=== PATIENT | male | born 1965 | race African-American/Black ===

== ENCOUNTER 2016-12-14 06:19 | Emergency (ER) | payer BC ==
[~2016-12-14] VITALS: Ht 170.2 cm; Wt 93.0 kg
[~2016-12-14 06:19] MED LIST: IBUPROFEN600 MG ORAL; NORCO 5-325 TA1 EACH ORAL; POLYTRIM OP SOL10 ML RIGHT EYE; PREDNISONE10 MG ORAL; ROBAXIN-750750 MG PO; TRAMADOL HCL50 MG ORAL; VALIUM2 MG ORAL
[2016-12-14] MEDS ORDERED: PREDNISONE5 MG ORAL (06:34)
[2016-12-14 06:35] VITALS: BP 134/60
[2016-12-14] MEDS ORDERED: Morphine Sulfate 4mg/ml Inj IVP ONE (07:00)
[2016-12-14] MEDS ORDERED: DiphenhydrAMINE 50mg/ml Inj IVP ONE (07:00)
[2016-12-14] MEDS ORDERED: Metoclopramide 10mg/2ml Inj IVP ONE (07:00)
[2016-12-14 07:27] LABS: APPEARANCE,URINE CLEAR; KETONES,URINE NEGATIVE (NEGATIVE); LEUKOCYTE ESTERASE ,URINE 1+ (NEGATIVE); NITRITE,URINE NEGATIVE (NEGATIVE); PH,URINE 8 (4.5-8.0); PROTEIN,URINE 1+ (NEGATIVE); UROBILINOGEN,URINE NORMAL MG/DL (0.0-1.0)
[2016-12-14] MEDS ORDERED: HYDROmorphone 1mg/ml Carpuject IVP ONE (07:30)
[2016-12-14] MEDS ORDERED: Famotidine 20 MG/ 2ML VIAL IVP ONE (07:30)
[2016-12-14 07:39] VITALS: BP 128/76
[2016-12-14 07:50] LABS: BACTERIA,URINE FEW /HPF; SQUAMOUS EPITHELIAL CELL,UR OCCASIONAL /LPF (NONE/OCC)
--- NOTE | 2016-12-14 08:02 | Emergency Room Report ---
History of Present Illness General Chief Complaint: Abdominal Pain Source: Patient Present Illness HPI Patient presents with complaints of nausea vomiting epigastric pain Patient has recently undergone a TURP procedure as well Denies any chest pain or shortness of breath denies any back or flank pain Patient reports that he has been dealing with the epigastric discomfort for 2 months however now the pain has worsened including increased vomiting Denies any diarrhea denies any fevers or chills Pain was 6/10 denies any rash Denies any other fall or trauma Allergies: Coded Allergies: No Known Allergies (Unverified , 12/14/16) Patient History Past Medical History: see triage record Pertinent Family History: none Reviewed Nursing Documentation: PMH: Agreed, PSxH: Agreed Nursing Documentation-PMH Hx Neurological Problems: Yes - polymyelocytis Review of Systems All Other Systems: negative except mentioned in HPI Physical Exam Vital Signs Date Time Temp Pulse Resp B/P Pulse Ox O2 Delivery O2 Flow Rate FiO2 12/14/16 06:23 97.9 64 16 123/89 100 Room Air Sp02 EP Interpretation: reviewed, normal General Appearance: moderate distress - Appears acutely nauseated actively vomiting in the ER, Head: normocephalic, atraumatic Eyes: bilateral eye EOMI, bilateral eye PERRL ENT: hearing grossly normal, normal pharynx, TMs + canals normal, uvula midline Neck: full range of motion, supple, no meningismus, no bony tend Respiratory: lungs clear, normal breath sounds, no rhonchi, no respiratory distress, no retraction, no accessory muscle use Cardiovascular #1: normal peripheral pulses, regular rate, rhythm, no edema, no gallop, no JVD, no murmur Gastrointestinal: normal bowel sounds, soft, no mass, no organomegaly, non- distended, no guarding, no hernia, no pulsatile mass, no rebound, tenderness - Mainly in the epigastric area Genitourinary: no CVA tenderness Musculoskeletal: normal inspection Neurologic: oriented x3, responsive, dietetic intern III-XII nml as tested, motor strength/ tone normal, sensory intact Psychiatric: mood/affect normal Skin: normal color, no rash, warm/dry, palpation normal Lymphatic: normal inspection, no adenopathy Medical Decision Making Diagnostic Impression: Primary Impression: Abdominal pain ER Course With the history exam and presentation, multiple differentials considered, including but not limited to appendicitis, gastritis, cholecystitis, diverticulitis Patient had CT obtained of the abdomen pelvis required multiple rounds of antibiotics and hydration Has started to do better throughout the ER stay CT shows some inflammatory process in line with enteritis possibly Patient's blood work shows a mildly elevated lipase level after prolonged observation in the ER patient has done well Will have clear diet And is stable for close outpatient followup Labs Test 12/14/16 06:54 12/14/16 08:05 Urine Color Yellow Urine Appearance Clear Urine pH 8 (4.5-8.0) Urine Specific [place] 1.010 (1.005-1.035) Urine Protein 1+ (NEGATIVE) Urine Glucose (UA) Negative (NEGATIVE) Urine Ketones Negative (NEGATIVE) Urine Occult Blood 2+ (NEGATIVE) Urine Nitrite Negative (NEGATIVE) Urine Bilirubin Negative (NEGATIVE) Urine Urobilinogen Normal MG/DL (0.0-1.0) Urine Leukocyte Esterase 1+ (NEGATIVE) Urine RBC 2-4 /HPF (0 - 0) Urine WBC 5-10 /HPF (0 - 0) Urine Squamous Epithelial Cells Occasional /LPF Urine Bacteria Few /HPF (NONE) White Blood Count 5.2 K/UL (4.8-10.8) Red Blood Count 4.53 M/UL (4.70-6.10) Hemoglobin 14.1 G/DL (14.2-18.0) Hematocrit 42.6 % (42.0-52.0) Mean Corpuscular Volume 94 FL (80-99) Mean Corpuscular Hemoglobin 31.2 PG (27.0-31.0) Mean Corpuscular Hemoglobin Concent 33.2 G/DL (32.0-36.0) Red Cell Distribution Width 13.0 % (11.6-14.8) Platelet Count 230 K/UL (150-450) Mean Platelet Volume 7.2 FL (6.5-10.1) Neutrophils (%) (Auto) 75.4 % (45.0-75.0) Lymphocytes (%) (Auto) 17.9 % (20.0-45.0) Monocytes (%) (Auto) 4.8 % (1.0-10.0) Eosinophils (%) (Auto) 1.1 % (0.0-3.0) Basophils (%) (Auto) 0.9 % (0.0-2.0) Sodium Level 137 mEQ/L (135-145) Potassium Level 3.6 mEQ/L (3.4-4.9) Chloride Level 98 mEQ/L (98-107) Carbon Dioxide Level 21 mEQ/L (20-30) Anion Gap 18 (5-15) Blood Urea Nitrogen 9 mg/dL (7-23) Creatinine 1.0 mg/dL (0.7-1.2) Estimat Glomerular Filtration Rate > 60 mL/min (>60) Glucose Level 104 mg/dL (74-106) Calcium Level 9.5 mg/dL (8.6-10.2) Total Bilirubin 0.3 mg/dL (0.0-1.2) Aspartate Amino Transf (AST/SGOT) 26 U/L (5-40) Alanine Aminotransferase (ALT/SGPT) 14 U/L (3-41) Alkaline Phosphatase 56 U/L (40-129) Troponin I < 0.30 ng/mL (<=0.30) Total Protein 7.0 g/dL (6.6-8.7) Albumin 4.1 g/dL (3.5-5.2) Globulin 2.9 g/dL Albumin/Globulin Ratio 1.4 (1.0-2.7) Lipase 108 U/L (< 60) CT/MRI/US Diagnostic Results CT/MRI/US Diagnostic Results : Impression CT abdomen pelvisImpression: Suspected gastroenteritis with mild distention of fluid-filled small bowel and liquefied stool in the colon. Normal appendix Last Vital Signs Date Time Temp Pulse Resp B/P Pulse Ox O2 Delivery O2 Flow Rate FiO2 12/14/16 07:39 98.0 64 14 128/76 100 Room Air Status: improved Disposition: HOME, SELF-CARE Condition: Improved Scripts Ondansetron Odt* (ZOFRAN ODT*) 4 Mg Tab.rapdis 4 MG ORAL Q6H Y for Nausea & Vomiting, #15 TAB 0 Refills Prov: ANH CABRERA.OClaudio 12/14/16 Famotidine (PEPCID) 20 Mg Tablet 20 MG ORAL DAILY, #7 TAB 0 Refills Prov: ANH CABRERA.OClaudio 12/14/16 Referrals: NON PHYSICIAN (PCP) Additional Instructions: Patient is provided with the discharge instructions notified to follow up with primary doctor in the next 2-3 days otherwise return to the er with any worsening symptoms. ANH CABRERA D.O. Dec 14, 2016 08:02
[2016-12-14 08:17] LABS: BASOPHILS % (AUTO) 0.9 % (0.0-2.0); EOSINOPHILS % (AUTO) 1.1 % (0.0-3.0); LYMPHOCYTES % (AUTO) 17.9 % (20.0-45.0); MEAN CORPUSCULAR HEMOGLOBIN 31.2 PG (27.0-31.0); MEAN CORPUSCULAR HGB CONC 33.2 G/DL (32.0-36.0); MEAN CORPUSCULAR VOLUME 94 FL (80-99); MEAN PLATELET VOLUME 7.2 FL (6.5-10.1); MONOCYTES % (AUTO) 4.8 % (1.0-10.0); NEUTROPHILS % (AUTO) 75.4 % (45.0-75.0); PLATELET COUNT 230 K/UL (150-450); RED BLOOD COUNT 4.53 M/UL (4.70-6.10); WHITE BLOOD COUNT 5.2 K/UL (4.8-10.8)
[2016-12-14 08:35] LABS: ALANINE AMINOTRANSFERASE 14 U/L (3-41); ALBUMIN/GLOBULIN RATIO 1.4 (1.0-2.7); ANION GAP 18 (5-15); ASPARTATE AMINO TRANSFERASE 26 U/L (5-40); CALCIUM 9.5 mg/dL (8.6-10.2); CARBON DIOXIDE 21 mEQ/L (20-30); CHLORIDE 98 mEQ/L (98-107); GLOMERULAR FILTRATION RATE > 60 mL/min (>60); HEMOLYSIS 9; LIPASE 108 U/L (< 60); POTASSIUM 3.6 mEQ/L (3.4-4.9); SODIUM 137 mEQ/L (135-145); TROPONIN I < 0.30 ng/mL (<=0.30)
[2016-12-14] MEDS ORDERED: cefTRIAXone 1 GM in NS 55 ML IVPB ONE (09:00)
--- NOTE | 2016-12-14 09:44 | Diagnostic Imaging Report ---
Indication: Abdominal pain Technique: Continuous helical transaxial imaging of the abdomen and pelvis was obtained from the lung bases to the pubic symphysis. No intravenous contrast was administered. Coronal 2-D reformats were also obtained. Total Dose length Product (DLP): [address] Dose Index Volume (CTDIvol): 18 mGy Comparison: none Findings: Distended fluid-filled loops of small bowel are noted in a diffuse fashion. The colon also demonstrates fluid-filled fecal material which may be indicative of diarrhea. The findings probably represent gastroenteritis. Please correlate clinically. There is no free fluid or free air. The appendix is normal. The lung bases are clear. There are 2.5 cm and 4.6 cm hypodensities in the left kidney that are probably cystic. Solid Organ evaluation is limited on this exam done without IV contrast. Impression: Suspected gastroenteritis with mild distention of fluid-filled small bowel and liquefied stool in the colon. Normal appendix The CT scanner at [facility] is accredited by the [employer] and the scans are performed using protocols designed to limit radiation exposure to as low as reasonably achievable to attain images of sufficient resolution adequate for diagnostic evaluation.
[2016-12-14] MEDS ORDERED: cefTRIAXone 1 GM in NS 110 ML IVPB ONE (10:00)
[2016-12-14 10:32] VITALS: BP 125/76
[2016-12-14 12:00] VITALS: BP 120/70
[2016-12-14] MEDS ORDERED: PEPCID20 MG ORAL (12:03)
[2016-12-14] MEDS ORDERED: ZOFRAN ODT4 MG ORAL (12:03)
[2016-12-14 12:24] VITALS: BP 120/70
== END 2016-12-14 12:24 | disposition home or self-care (01) ==
LOC: EEVIPCON 06:48 → EMR 06:48
DX: R10.13 Epigastric pain (principal)
CPT/HCPCS: 36415; 74176; 80053; 81003; 83690; 84484; 85025; 96374; 96375; 99284; J0696; J1170; J1200; J2270; J2405; J2765; S0028

== ENCOUNTER 2016-12-28 06:49 | Inpatient (IN) | payer BC ==
[~2016-12-28] VITALS: Ht 170.2 cm; Wt 90.7 kg
[~2016-12-28 06:49] MED LIST changes: +PEPCID20 MG ORAL; +PREDNISONE5 MG ORAL; +ZOFRAN ODT4 MG ORAL
[2016-12-28] MEDS ORDERED: Morphine Sulfate 4mg/ml Inj IVP ONE ×2 (07:15→08:15)
[2016-12-28] MEDS ORDERED: Pantoprazole Inj IV ONE (07:15)
[2016-12-28 08:07] LABS: APPEARANCE,URINE CLEAR; KETONES,URINE NEGATIVE (NEGATIVE); LEUKOCYTE ESTERASE ,URINE 1+ (NEGATIVE); NITRITE,URINE NEGATIVE (NEGATIVE); PH,URINE 6.5 (4.5-8.0); PROTEIN,URINE NEGATIVE (NEGATIVE); UROBILINOGEN,URINE NORMAL MG/DL (0.0-1.0)
[2016-12-28 08:10] LABS: BASOPHILS % (AUTO) 1.4 % (0.0-2.0); EOSINOPHILS % (AUTO) 3.9 % (0.0-3.0); MEAN CORPUSCULAR HEMOGLOBIN 32.7 PG (27.0-31.0); MEAN CORPUSCULAR HGB CONC 34.7 G/DL (32.0-36.0); MEAN CORPUSCULAR VOLUME 94 FL (80-99); MEAN PLATELET VOLUME 8.6 FL (6.5-10.1); MONOCYTES % (AUTO) 5.7 % (1.0-10.0); PLATELET COUNT 214 K/UL (150-450); RED BLOOD COUNT 4.09 M/UL (4.70-6.10); RED CELL DISTRIBUTION WIDTH 12.8 % (11.6-14.8); WHITE BLOOD COUNT 5.1 K/UL (4.8-10.8)
[2016-12-28 08:19] LABS: RBC,URINE 0-2 /HPF (0 - 0)
[2016-12-28 08:20] LABS: BACTERIA,URINE FEW /HPF; SQUAMOUS EPITHELIAL CELL,UR OCCASIONAL /LPF (NONE/OCC)
--- NOTE | 2016-12-28 08:38 | Emergency Room Report ---
History of Present Illness General Chief Complaint: Gastrointestinal Illness Source: Patient Present Illness HPI 51-year-old male presents to ED complaining of abdominal pain and rectal bleeding. States that symptoms started approximately 2 weeks ago with abdominal pain. Was seen in [place] ER- had a workup which included CT showed possible enteritis. Patient was subsequently discharged. Patient states symptoms never resolved and he needed to [facility] for approximately one week. Patient states he had a workup including CT, [place] emptying study, endoscopy and was told everything was okay. Patient was discharged home but states symptoms continued. Abdominal pain to the knee but patient had rectal bleeding starting yesterday. Noticed bright red blood clots. Pain is cramping, 8/10, diffuse. Nonradiating. No aggravating or relieving factors. Denies nausea or vomiting. Denies chest pain or shortness of breath. Denies fevers or chills. Denies any blood thinners. Denies recent antibiotic use. Denies any other associated symptoms Allergies: Coded Allergies: No Known Allergies (Unverified , 12/14/16) Patient History Past Medical History: other - polymyositis Past Surgical History: other - hernia repair Pertinent Family History: none Social History: Denies: alcohol use, drug use, smoking Immunizations: UTD Reviewed Nursing Documentation: PMH: Agreed, PSxH: Agreed Nursing Documentation-PMH Hx Gastrointestinal Problems: Yes - hernia surgery 2013 Hx Neurological Problems: Yes - polymyelocytis Review of Systems All Other Systems: negative except mentioned in HPI Physical Exam Vital Signs Date Time Temp Pulse Resp B/P Pulse Ox O2 Delivery O2 Flow Rate FiO2 12/28/16 06:50 97.9 86 18 133/91 100 Room Air Sp02 EP Interpretation: reviewed, normal General Appearance: alert, GCS 15, non-toxic, mild distress Head: normocephalic Eyes: bilateral eye PERRL, bilateral eye normal inspection ENT: normal ENT inspection Neck: normal inspection Respiratory: chest non-tender, lungs clear, normal breath sounds, speaking full sentences Cardiovascular #1: regular rate, rhythm, no edema Gastrointestinal: normal bowel sounds, soft, non-distended, no guarding, no rebound, tenderness Rectal: heme positive stool Genitourinary: no CVA tenderness Musculoskeletal: normal inspection Neurologic: alert, oriented x3, responsive, motor strength/tone normal, sensory intact, speech normal Psychiatric: normal inspection Skin: normal color Lymphatic: normal inspection Medical Decision Making Diagnostic Impression: Primary Impression: Colitis Additional Impression: LGI bleed ER Course Hospital Course 51-year-old M presents to ED with rectal bleeding, abd pain. Differential diagnoses include: UGIB, LGIB, hemorrhoids Clinical course Patient placed on stretcher. electronic device monitor. After initial history and physical I ordered labs, IV fluids, UA Labs - no leukocytosis, Hb/Hct stable. electrolytes ok Given multiple admissions with patient being immunosuppressed on prednisone for 9 doses of polymyositis, I believe patient is likely having C. difficile colitis patient has had multiple CTs in the last 2 weeks I did not want to get another CT at this time Because of insurance patient was to be transferred however they cannot find bed availability so she will be admitted here Case discussed with Dr. Clay and he agreed to accept the patient to his service for further care and support I feel this is a highly complex case requiring extensive working including EKG/ Rhythm strip, Xray/CT/US, Blood/urine lab work, repeat exams while in ED, and administration of strong opiates/narcotics for pain control, admission to hospital or close patient follow up. Diagnosis - LGIB, colitis Patient admitted to floor in serious condition Labs Test 12/28/16 07:40 12/28/16 10:00 White Blood Count 5.1 K/UL (4.8-10.8) Red Blood Count 4.09 M/UL (4.70-6.10) Hemoglobin 13.4 G/DL (14.2-18.0) Hematocrit 38.6 % (42.0-52.0) Mean Corpuscular Volume 94 FL (80-99) Mean Corpuscular Hemoglobin 32.7 PG (27.0-31.0) Mean Corpuscular Hemoglobin Concent 34.7 G/DL (32.0-36.0) Red Cell Distribution Width 12.8 % (11.6-14.8) Platelet Count 214 K/UL (150-450) Mean Platelet Volume 8.6 FL (6.5-10.1) Neutrophils (%) (Auto) 42.0 % (45.0-75.0) Lymphocytes (%) (Auto) 47.0 % (20.0-45.0) Monocytes (%) (Auto) 5.7 % (1.0-10.0) Eosinophils (%) (Auto) 3.9 % (0.0-3.0) Basophils (%) (Auto) 1.4 % (0.0-2.0) Urine Color Pale yellow Urine Appearance Clear Urine pH 6.5 (4.5-8.0) Urine Specific [place] 1.010 (1.005-1.035) Urine Protein Negative (NEGATIVE) Urine Glucose (UA) Negative (NEGATIVE) Urine Ketones Negative (NEGATIVE) Urine Occult Blood 1+ (NEGATIVE) Urine Nitrite Negative (NEGATIVE) Urine Bilirubin Negative (NEGATIVE) Urine Urobilinogen Normal MG/DL (0.0-1.0) Urine Leukocyte Esterase 1+ (NEGATIVE) Urine RBC 0-2 /HPF (0 - 0) Urine WBC 2-4 /HPF (0 - 0) Urine Squamous Epithelial Cells Occasional /LPF Urine Bacteria Few /HPF (NONE) Prothrombin Time 10.9 SEC (9.30-11.50) Prothromb Time International Ratio 1.1 (0.9-1.1) Activated Partial Thromboplast Time 27 SEC (23-33) Sodium Level 144 mEQ/L (135-145) Potassium Level 3.7 mEQ/L (3.4-4.9) Chloride Level 108 mEQ/L (98-107) Carbon Dioxide Level 23 mEQ/L (20-30) Anion Gap 13 (5-15) Blood Urea Nitrogen 10 mg/dL (7-23) Creatinine 0.9 mg/dL (0.7-1.2) Estimat Glomerular Filtration Rate > 60 mL/min (>60) Glucose Level 85 mg/dL (74-106) Calcium Level 9.3 mg/dL (8.6-10.2) Total Bilirubin 0.3 mg/dL (0.0-1.2) Aspartate Amino Transf (AST/SGOT) 17 U/L (5-40) Alanine Aminotransferase (ALT/SGPT) 10 U/L (3-41) Alkaline Phosphatase 52 U/L (40-129) Troponin I < 0.30 ng/mL (<=0.30) Total Protein 6.4 g/dL (6.6-8.7) Albumin 3.8 g/dL (3.5-5.2) Globulin 2.6 g/dL Albumin/Globulin Ratio 1.4 (1.0-2.7) Lipase 23 U/L (< 60) Last Vital Signs Date Time Temp Pulse Resp B/P Pulse Ox O2 Delivery O2 Flow Rate FiO2 12/28/16 06:50 97.9 86 18 133/91 100 Room Air Status: improved Disposition: ADMITTED INPATIENT Condition: Serious Referrals: NON PHYSICIAN (PCP) RAMSEY WAITE M.D. Dec 28, 2016 08:38
[2016-12-28] MEDS ORDERED: HYDROmorphone 1 MG, DiphenhydrAMINE 25 MG in NS 55 ML IVPB ONE ×3 (09:30→14:45)
[2016-12-28] MEDS ORDERED: HYDROmorphone 1mg/ml Carpuject ONE ×2 (09:38→15:01)
[2016-12-28] MEDS ORDERED: DiphenhydrAMINE 50mg/ml Inj ONE ×2 (09:38→15:01)
[2016-12-28 10:19] VITALS: BP 137/71
[2016-12-28 10:33] LABS: TROPONIN I < 0.30 ng/mL (<=0.30)
[2016-12-28 10:36] LABS: ALANINE AMINOTRANSFERASE 10 U/L (3-41); ALBUMIN/GLOBULIN RATIO 1.4 (1.0-2.7); ANION GAP 13 (5-15); ASPARTATE AMINO TRANSFERASE 17 U/L (5-40); CALCIUM 9.3 mg/dL (8.6-10.2); CARBON DIOXIDE 23 mEQ/L (20-30); CHLORIDE 108 mEQ/L (98-107); CREATININE 0.9 mg/dL (0.7-1.2); GLOMERULAR FILTRATION RATE > 60 mL/min (>60); HEMOLYSIS 12; LIPASE 23 U/L (< 60); POTASSIUM 3.7 mEQ/L (3.4-4.9); SODIUM 144 mEQ/L (135-145); TOTAL PROTEIN 6.4 g/dL (6.6-8.7)
[2016-12-28 10:41] LABS: INR 1.1 (0.9-1.1); PROTHROMBIN TIME 10.9 SEC (9.30-11.50)
--- NOTE | 2016-12-28 12:17 | History & Physical ---
History and Physical History & Physicial dict OSIRISJOSE JOYNER Dec 28, 2016 12:17
[2016-12-28 15:11] VITALS: BP 144/85
[2016-12-28 16:00] VITALS: BP 136/80
[2016-12-28] MEDS: metroNIDAZOLE 500mg tab ORAL SCH (18:07)
[2016-12-28] MEDS: Norco 7.5mg/325mg tab ORAL PRN ×2 (18:07→22:00)
[2016-12-28] MEDS: PredniSONE 5mg tab ORAL SCH (18:08)
--- NOTE | 2016-12-28 20:27 | History and Physical Report ---
DATE OF ADMISSION: 12/28/2016 CHIEF COMPLAINT: Rectal bleeding. 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 He states that he has lost about 15 pounds. He has been eating poorly and vomiting. He was evaluated with a CT scan that was essentially negative. He was discharged home with symptomatic medications. He was admitted to the hospital at [facility] for about a week and left several days ago. He had a CT scan and upper endoscopy, and was discharged on symptomatic medication. His prednisone was increased. He is on prednisone for polymyositis. He states that he developed rectal bleeding over the last several days and came in to the emergency department here. He has no fever. He has no prior history of gastrointestinal disorders. PAST MEDICAL HISTORY: He had radical prostatectomy two months ago for prostate cancer. He has polymyositis and his prednisone was recently increased from 10 mg to 30 mg daily. He had a hernia repair. SOCIAL HISTORY: He does not drink or smoke. He does not use drugs. ALLERGIES: None. MEDICATIONS: Reviewed. REVIEW OF SYSTEMS: Otherwise unremarkable. PHYSICAL EXAMINATION: GENERAL: The patient is alert and responds appropriately. He is well developed and well nourished. VITAL SIGNS: Normal. Blood pressure has been slightly elevated. HEENT: Head is normocephalic. NECK: No jugular venous distention. CHEST: Clear. CARDIAC: Rhythm is regular. ABDOMEN: Soft. There is no significant tenderness. No mass or ascites. Liver and spleen are not enlarged. EXTREMITIES: No clubbing, cyanosis, or edema. LABORATORY STUDIES: White count is normal. Hemoglobin is 13.4. Platelets are normal. Chemistry is essentially normal. Coagulation is normal. Urinalysis is normal. IMPRESSION: 1. Lower gastrointestinal bleeding, possibly due to colitis. 2. Recent radical prostatectomy two months ago. 3. Polymyositis, on prednisone. PLAN: The patient will be admitted and given intravenous fluids and antibiotics. GI consultation will be requested. Jordi Clay M.D. DR: KWADWO JOB#: [id number] CC:
[2016-12-28] MEDS ORDERED: Sorbitol Solution UD 30ml ORAL ONE (21:30)
--- NOTE | 2016-12-28 21:33 | General Progress Note ---
Assessment/Plan Assessment/Plan Assessment - recent abd pain , N/V, and now hematochezia - CT at outside hospital reported as showing "mesenteric panniculitis" - negative recent EGD at outside hospital - mild anemia Recommendations - check C Diff - check autoimmune markers - Colonoscopy Subjective Allergies: Coded Allergies: No Known Allergies (Unverified , 12/14/16) Objective Last 24 Hour Vital Signs Date Time Temp Pulse Resp B/P Pulse Ox O2 Delivery O2 Flow Rate FiO2 12/28/16 16:00 97.5 49 20 136/80 99 Room Air 12/28/16 15:29 97.8 58 18 144/85 100 Room Air 12/28/16 15:28 97.8 12/28/16 15:11 97.8 58 18 144/85 100 Room Air 12/28/16 10:24 97.8 12/28/16 10:19 97.8 56 18 137/71 100 Room Air 12/28/16 09:10 97.8 12/28/16 09:10 97.8 12/28/16 06:50 97.9 86 18 133/91 100 Room Air Laboratory Tests 12/28/16 07:40: White Blood Count 5.1, Red Blood Count 4.09L, Hemoglobin 13.4L, Hematocrit 38.6L , Mean Corpuscular Volume 94, Mean Corpuscular Hemoglobin 32.7H, Mean Corpuscular Hemoglobin Concent 34.7, Red Cell Distribution Width 12.8, Platelet Count 214, Mean Platelet Volume 8.6, Neutrophils (%) (Auto) 42.0L, Lymphocytes ( %) (Auto) 47.0H, Monocytes (%) (Auto) 5.7, Eosinophils (%) (Auto) 3.9H, Basophils (%) (Auto) 1.4, Urine Color Pale yellow, Urine Appearance Clear, Urine pH 6.5, Urine Specific [place] 1.010, Urine Protein Negative, Urine Glucose (UA) Negative, Urine Ketones Negative, Urine Occult Blood 1+H, Urine Nitrite Negative, Urine Bilirubin Negative, Urine Urobilinogen Normal, Urine Leukocyte Esterase 1+H, Urine RBC 0-2H, Urine WBC 2-4, Urine Squamous Epithelial Cells Occasional, Urine Bacteria Few 12/28/16 10:00: Prothrombin Time 10.9, Prothromb Time International Ratio 1.1, Activated Partial Thromboplast Time 27, Sodium Level 144, Potassium Level 3.7, Chloride Level 108H, Carbon Dioxide Level 23, Anion Gap 13, Blood Urea Nitrogen 10, Creatinine 0.9, Estimat Glomerular Filtration Rate > 60, Glucose Level 85, Calcium Level 9.3, Total Bilirubin 0.3, Aspartate Amino Transf (AST/SGOT) 17, Alanine Aminotransferase (ALT/SGPT) 10, Alkaline Phosphatase 52, Troponin I < 0.30, Total Protein 6.4L, Albumin 3.8, Globulin 2.6, Albumin/Globulin Ratio 1.4 , Lipase 23 Height (Feet): 5 Height (Inches): 7.00 Weight (Pounds): 200 BOB RODRÍGUEZ Dec 28, 2016 21:33
[2016-12-29] VITALS: BP 126/76
[2016-12-29] MEDS: metroNIDAZOLE 500mg tab ORAL SCH ×3 (00:35→13:32)
--- NOTE | 2016-12-29 01:57 | Consultation ---
DATE OF CONSULTATION: 12/28/2016 CHIEF COMPLAINT: I was asked to see this patient by Dr. Jordi Clay, for evaluation of gastrointestinal symptoms. 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 The patient initially had some pain, nausea and vomiting and came to the emergency room at [facility] [employer] where a CT scan was done showing possible gastroenteritis. He was discharged from the emergency room to home but eventually was re-admitted to [facility] in [place] where he was admitted for a few days. In that hospital, CT scan of the abdomen and pelvis by report showed inflammatory changes in the mesentery which was diagnosed as mesenteric panniculitis. Because of that finding, the patient underwent an endoscopic evaluation of the gastrointestinal tract which was negative except for an incidental hiatal hernia. Subsequently the patient improved and he received some antibiotics and then sent home but now comes to [facility] because of persistent symptoms. The patient has never had a colonoscopy and in fact on this admission he also noted some hematochezia and diarrhea which is new for him. The patient stated he had a colonoscopy many years ago but this was perhaps about 10 years ago. He has a longstanding history of polymyositis for which he is on long-term prednisone. PAST MEDICAL HISTORY: History of polymyositis, on long-term prednisone, history of carcinoma of prostate status post laparoscopic prostatectomy on 10/28/2016. MEDICATIONS: As an outpatient include prednisone. FAMILY HISTORY: Noncontributory. SOCIAL HISTORY: The patient is single. He does not smoke. REVIEW OF SYSTEMS: Otherwise negative. PHYSICAL EXAMINATION: GENERAL: This is a pleasant man, seen in his room. HEENT: Normocephalic and atraumatic. Sclerae anicteric. Oropharynx clear. NECK: supple. CHEST: Clear to auscultation. CARDIOVASCULAR: Revealed a regular rate. ABDOMEN: Soft, but tender to palpation in the epigastric region and less so in the right upper quadrant region. There is no guarding or rebound. No masses. EXTREMITIES: Revealed no edema. NEUROLOGIC: Grossly nonfocal. LABORATORY DATA: Laboratory data was noted. ASSESSMENT: This patient presents with persistent abdominal pain, nausea and vomiting. No hematochezia. Outside CT scan showing mesenteric panniculitis. This is a somewhat vague entity with a description of some mesenteric inflammatory changes, also thought to be vascular in origin. The nature and cause of the condition however is not clear and treatment is typically conservative where at times steroids are used to reduce any inflammatory changes. Now however the patient also has hematochezia which will require further evaluation. I would suggest performing a colonoscopy to evaluate the lower gastrointestinal tract for any other reason which may help explain the patient's presentation. Indications risks, alternatives, and possible complications of the procedure were explained to the patient. Informed consent was obtained. RECOMMENDATIONS: 1. Clear liquid diet. 2. Gastrointestinal tract preparation. 3. Check autoimmune markers. 4. Colonoscopy later this week. Thank you for asking me to participate in the care of this patient. Sang Joiner M.D. DR: Marilyn JOB#: [id number] CC:
[2016-12-29] MEDS: Norco 7.5mg/325mg tab ORAL PRN ×2 (03:54→09:06)
[2016-12-29 04:00] VITALS: BP 140/86
[2016-12-29 06:52] LABS: BASOPHILS % (AUTO) 1.8 % (0.0-2.0); EOSINOPHILS % (AUTO) 2.9 % (0.0-3.0); LYMPHOCYTES % (AUTO) 50.3 % (20.0-45.0); MEAN CORPUSCULAR HEMOGLOBIN 32.7 PG (27.0-31.0); MEAN CORPUSCULAR HGB CONC 35.1 G/DL (32.0-36.0); MEAN CORPUSCULAR VOLUME 93 FL (80-99); MEAN PLATELET VOLUME 9.6 FL (6.5-10.1); MONOCYTES % (AUTO) 4.6 % (1.0-10.0); NEUTROPHILS % (AUTO) 40.5 % (45.0-75.0); PLATELET COUNT 207 K/UL (150-450); RED BLOOD COUNT 4.28 M/UL (4.70-6.10); WHITE BLOOD COUNT 4.4 K/UL (4.8-10.8)
[2016-12-29 07:13] LABS: ALANINE AMINOTRANSFERASE 11 U/L (3-41); ALBUMIN/GLOBULIN RATIO 1.6 (1.0-2.7); ANION GAP 13 (5-15); ASPARTATE AMINO TRANSFERASE 18 U/L (5-40); CALCIUM 9.6 mg/dL (8.6-10.2); CARBON DIOXIDE 25 mEQ/L (20-30); CHLORIDE 104 mEQ/L (98-107); CREATININE 0.9 mg/dL (0.7-1.2); GLOMERULAR FILTRATION RATE > 60 mL/min (>60); HEMOLYSIS 6; POTASSIUM 4.1 mEQ/L (3.4-4.9); SODIUM 142 mEQ/L (135-145); TOTAL PROTEIN 6.7 g/dL (6.6-8.7)
[2016-12-29 08:00] VITALS: BP 152/89
--- NOTE | 2016-12-29 08:04 | General Progress Note ---
Assessment/Plan Assessment/Plan Assessment - recent abd pain , N/V, and now hematochezia - CT at outside hospital reported as showing "mesenteric panniculitis" - negative recent EGD at outside hospital - mild anemia Recommendations - check C Diff - check autoimmune markers - Colonoscopy - GI prep today Subjective Allergies: Coded Allergies: No Known Allergies (Unverified , 12/14/16) Subjective feels better less pain resolved vomiting (+) BM with prep Objective Last 24 Hour Vital Signs Date Time Temp Pulse Resp B/P Pulse Ox O2 Delivery O2 Flow Rate FiO2 12/29/16 04:00 97.2 52 16 140/86 99 Room Air 12/29/16 00:00 97.2 55 16 126/76 98 Room Air 12/28/16 16:00 97.5 49 20 136/80 99 Room Air 12/28/16 15:29 97.8 58 18 144/85 100 Room Air 12/28/16 15:28 97.8 12/28/16 15:11 97.8 58 18 144/85 100 Room Air 12/28/16 10:24 97.8 12/28/16 10:19 97.8 56 18 137/71 100 Room Air 12/28/16 09:10 97.8 12/28/16 09:10 97.8 Intake and Output 12/28/16 12/29/16 19:00 07:00 Intake Total 2100 ml Balance 2100 ml Intake Oral 2100 ml # Voids 2 16 # Bowel Movements 2 3 Laboratory Tests 12/28/16 10:00: Prothrombin Time 10.9, Prothromb Time International Ratio 1.1, Activated Partial Thromboplast Time 27, Sodium Level 144, Potassium Level 3.7, Chloride Level 108H, Carbon Dioxide Level 23, Anion Gap 13, Blood Urea Nitrogen 10, Creatinine 0.9, Estimat Glomerular Filtration Rate > 60, Glucose Level 85, Calcium Level 9.3, Total Bilirubin 0.3, Aspartate Amino Transf (AST/SGOT) 17, Alanine Aminotransferase (ALT/SGPT) 10, Alkaline Phosphatase 52, Troponin I < 0.30, Total Protein 6.4L, Albumin 3.8, Globulin 2.6, Albumin/Globulin Ratio 1.4 , Lipase 23 12/29/16 04:40: Sodium Level 142, Potassium Level 4.1, Chloride Level 104, Carbon Dioxide Level 25, Anion Gap 13, Blood Urea Nitrogen 8, Creatinine 0.9, Estimat Glomerular Filtration Rate > 60, Glucose Level 93, Calcium Level 9.6, Total Bilirubin 0.5, Aspartate Amino Transf (AST/SGOT) 18, Alanine Aminotransferase (ALT/SGPT) 11, Alkaline Phosphatase 56, Total Protein 6.7, Albumin 4.2, Globulin 2.5, Albumin/ Globulin Ratio 1.6, White Blood Count 4.4L, Red Blood Count 4.28L, Hemoglobin 14.0L, Hematocrit 39.8L, Mean Corpuscular Volume 93, Mean Corpuscular Hemoglobin 32.7H, Mean Corpuscular Hemoglobin Concent 35.1, Red Cell Distribution Width 13.0, Platelet Count 207, Mean Platelet Volume 9.6, Neutrophils (%) (Auto) 40.5L, Lymphocytes (%) (Auto) 50.3H, Monocytes (%) (Auto ) 4.6, Eosinophils (%) (Auto) 2.9, Basophils (%) (Auto) 1.8, Erythrocyte Sedimentation Rate [Pending], Anti-Nuclear Antibody Screen [Pending], c-ANCA Titer [Pending], p-ANCA Titer [Pending] Height (Feet): 5 Height (Inches): 7.00 Weight (Pounds): 200 Objective WDWN AA Man NCAT supple CTA RRR soft ND, Min TTP epigastric no edema nonfocal BOB RODRÍGUEZ Dec 29, 2016 08:04
[2016-12-29 08:12] LABS: ERYTHROCYTE SEDIMENTATION RATE 16 MM/HR (0-20)
[2016-12-29] MEDS: PredniSONE 5mg tab ORAL SCH (08:46)
[2016-12-29] MEDS ORDERED: Nulytely 4L ORAL ONE (09:00)
[2016-12-29] MEDS ORDERED: Norco 7.5mg/325mg tab ORAL PRN (11:02)
[2016-12-29] MEDS: HYDROmorphone 1mg/ml Carpuject IVP PRN ×3 (11:07→17:32)
[2016-12-29 11:58] VITALS: BP 139/77
[2016-12-29] MEDS ORDERED: NS 55ml IV ONE (13:56)
[2016-12-29 16:32] VITALS: BP 129/81
--- NOTE | 2016-12-29 16:51 | Diagnostic Imaging Report ---
Clinical Indication: Abdominal pain Technique: Patient given oral contrast. IV administration nonionic contrast. Venous phase spiral acquisition obtained through the abdomen and pelvis. Multiplanar reconstructions were generated. Total dose length product 891 mGycm. CTDIvol(s) 17 mGy Comparison: 12/14/2016 noncontrast study Findings: The appendix is normal. There is no evidence of diverticulosis or diverticulitis. Small bowel loops are diffusely mildly fluid-filled, upper limits of normal in caliber. No definite wall thickening. The stomach and duodenum are unremarkable. No free or loculated intraperitoneal air or fluid. The distal esophagus is unremarkable. Note that most of the ingested contrast is seen within the colon, rapid transit The liver is mildly hypoattenuating, consistent with fatty change. No focal abnormalities gallbladder, bile ducts, pancreas, spleen, adrenals are unremarkable. The left kidney upper pole and lower pole cyst. Both kidneys demonstrate subcentimeter low-attenuation lesions which are too small to characterize. No renal or ureteral calculi, hydronephrosis, or hydroureter demonstrated. No pelvic or retroperitoneal mass or adenopathy. The bladder is nondistended. The included lung bases demonstrate some atelectasis on the left. Otherwise clear. The bones are unremarkable. Impression: Mildly fluid-filled upper limits of normal caliber small bowel loops, possibly indicating enteritis. No evidence of bowel obstruction. Evidence of rapid transit of contrast Mild fatty hepatic change Left basilar pulmonary atelectasis Left renal cysts. Bilateral subcentimeter renal low-attenuation lesions, too small to characterize, most likely benign simple cortical cysts. No further followup necessary The CT scanner at [facility] is accredited by the [employer] and the scans are performed using protocols designed to limit radiation exposure to as low as reasonably achievable to attain images of sufficient resolution adequate for diagnostic evaluation.
--- NOTE | 2016-12-29 19:05 | General Progress Note ---
Assessment/Plan Assessment/Plan 1. Lower gastrointestinal bleeding, possibly due to colitis. 2. Recent radical prostatectomy two months ago. 3. Polymyositis, on prednisone. GI notes reviewed, appreciated CT pending colonoscopy tomorrow disc w case therapist, possible transfer to [facility] Subjective Gastrointestinal/Abdominal: Reports: blood in stool Allergies: Coded Allergies: No Known Allergies (Unverified , 12/14/16) Objective Last 24 Hour Vital Signs Date Time Temp Pulse Resp B/P Pulse Ox O2 Delivery O2 Flow Rate FiO2 12/29/16 16:32 96.4 57 18 129/81 97 Room Air 12/29/16 11:58 97.2 48 18 139/77 98 Room Air 12/29/16 08:00 97.7 51 18 152/89 100 Room Air 12/29/16 04:00 97.2 52 16 140/86 99 Room Air 12/29/16 00:00 97.2 55 16 126/76 98 Room Air Intake and Output 12/28/16 12/29/16 19:00 07:00 Intake Total 2100 ml Balance 2100 ml Intake Oral 2100 ml # Voids 2 16 # Bowel Movements 2 3 Laboratory Tests 12/29/16 04:40: White Blood Count 4.4L, Red Blood Count 4.28L, Hemoglobin 14.0L, Hematocrit 39.8L, Mean Corpuscular Volume 93, Mean Corpuscular Hemoglobin 32.7H, Mean Corpuscular Hemoglobin Concent 35.1, Red Cell Distribution Width 13.0, Platelet Count 207, Mean Platelet Volume 9.6, Neutrophils (%) (Auto) 40.5L, Lymphocytes ( %) (Auto) 50.3H, Monocytes (%) (Auto) 4.6, Eosinophils (%) (Auto) 2.9, Basophils (%) (Auto) 1.8, Erythrocyte Sedimentation Rate 16, Sodium Level 142, Potassium Level 4.1, Chloride Level 104, Carbon Dioxide Level 25, Anion Gap 13, Blood Urea Nitrogen 8, Creatinine 0.9, Estimat Glomerular Filtration Rate > 60, Glucose Level 93, Calcium Level 9.6, Total Bilirubin 0.5, Aspartate Amino Transf (AST/SGOT) 18, Alanine Aminotransferase (ALT/SGPT) 11, Alkaline Phosphatase 56, Total Protein 6.7, Albumin 4.2, Globulin 2.5, Albumin/Globulin Ratio 1.6, Anti-Nuclear Antibody Screen [Pending], c-ANCA Titer [Pending], p- ANCA Titer [Pending] Height (Feet): 5 Height (Inches): 7.00 Weight (Pounds): 200 General Appearance: no apparent distress Neck: supple Cardiovascular: normal rate Respiratory/Chest: lungs clear Abdomen: non tender, soft JOSE SOLOMON Dec 29, 2016 19:05
[2016-12-29] MEDS ORDERED: TYLENOL650 MG/20. ORAL (20:41)
[2016-12-29] MEDS ORDERED: HYDROCODON-ACE1 EA16 ORAL (20:42)
[2016-12-29] MEDS ORDERED: HYDROMORPHO2 MG/1 M2 IV (20:44)
[2016-12-29] MEDS ORDERED: ZOFRAN4 M3 ORAL (20:45)
[2016-12-29] MEDS ORDERED: METRONIDAZOLE500 MG ORAL (20:45)
[2016-12-29] MEDS ORDERED: ZOFRAN 4 MG4 MG/2 ML IV (20:46)
[2016-12-29] MEDS ORDERED: PROTONIX40 MG ORAL (20:46)
[2016-12-30 14:21] LABS: ANTI-NUCLEAR ANTIBODY SCREEN Negative (Negative)
--- NOTE | 2016-12-30 17:02 | Discharge Summary ---
Discharge Summary Hospital Course Date of Admission Dec 28, 2016 at 10:10 Date of Discharge Dec 29, 2016 at 21:10 Admitting Diagnosis LGIB HPI Sharif Pack is a 51 year old male who was admitted on Dec 28, 2016 at 10:10 for Lower Gastrointestinal Bleed Hospital Course [id number] Discharge Discharge Disposition Patient was discharged to contracted facility Discharge Diagnoses: Brenda Dhaliwal NP Dec 30, 2016 17:02
--- NOTE | 2016-12-31 00:58 | Discharge Summary 2 SIG ---
DATE OF ADMISSION: 12/28/2016 DATE OF DISCHARGE: 12/29/2016 DETENTION SERGEANT: Sang Joiner M.D. BRIEF HOSPITAL COURSE: The patient is a 51-year-old male, who was seen at emergency department two to three weeks ago with abdominal pain and has been eating poorly and been vomiting. CT scan done was essentially negative. He was discharged home with symptomatic medications. He was admitted to [facility] for about a week and left several days ago. He had a CT scan and upper endoscopy and was discharged on symptomatic medication. He has history of polymyositis and he has been on prednisone. His prednisone dose was increased. He stated that he developed rectal bleeding over the last several days and came to emergency department for further evaluation. He was admitted and was given IV fluids and antibiotics. GI was consulted. He was planned to undergo colonoscopy, however, was transferred to [facility] hospital. FINAL DIAGNOSES: 1. Lower gastrointestinal bleed, possibly due to colitis. 2. Recent radical prostatectomy. 3. Polymyositis, on prednisone. Jordi Clay M.D. I have been assigned to dictate discharge summary on this account and I was not involved in the patient's management. Brenda Dhaliwal N.P. DR: MAUDE JOB#: [id number] CC: FREDY
== END 2016-12-29 21:10 | disposition short-term general hospital (02) | DRG 392 ==
LOC: EMR 07:20 → EEVIPCON 07:20 → 4W 10:10 → EDBEDREQ 14:48 → 4W 16:05
DX: K52.9 Noninfective gastroenteritis and colitis, unspecified (principal); M33.20 Polymyositis, organ involvement unspecified; K92.2 Gastrointestinal hemorrhage, unspecified; K65.4 Sclerosing mesenteritis; K44.9 Diaphragmatic hernia without obstruction or gangrene; D64.9 Anemia, unspecified; Z85.46 Personal history of malignant neoplasm of prostate; Z79.52 Long term (current) use of systemic steroids
CPT/HCPCS: 36415; 74177; 80053; 81003; 83690; 84484; 85025; 85610; 85651; 85730; 86021; 86039; 86850; 86900; 86901; 87045; 87493

== ENCOUNTER → 2017-01-10 | Outpatient (CLI) | payer BC ==
[~2017-01-10] MED LIST changes: +HYDROCODON-ACE1 EA16 ORAL; +HYDROMORPHO2 MG/1 M2 IV; +METRONIDAZOLE500 MG ORAL; +PROTONIX40 MG ORAL; +TYLENOL650 MG/20. ORAL; +ZOFRAN 4 MG4 MG/2 ML IV; +ZOFRAN4 M3 ORAL
== END | disposition home or self-care (01) ==
LOC: LAB 05:04
DX: C61 Malignant neoplasm of prostate (principal)
CPT/HCPCS: 36415; 84153

== ENCOUNTER 2017-04-11 06:45 | Outpatient (CLI) | payer BC | END 2017-04-13 08:15 | disposition home or self-care (01) | LOC: RAD 06:45 → LAB 04-13 08:15 | DX: C61 Malignant neoplasm of prostate (principal) | CPT/HCPCS: 36415; 84153 ==

== ENCOUNTER 2017-12-05 08:19 | Outpatient (CLI) | payer BC | END 2017-12-05 10:19 | disposition home or self-care (01) | LOC: LAB 08:19 | DX: C61 Malignant neoplasm of prostate (principal) | CPT/HCPCS: 36415; 84153 ==

== ENCOUNTER 2018-01-18 09:03 | Emergency (ER) | payer BC, OTHER ==
[~2018-01-18] VITALS: Ht 170.2 cm; Wt 90.7 kg
[2018-01-18] MEDS ORDERED: Albuterol/Ipratropium 3ml neb HHN ONE (09:15)
[2018-01-18 09:24] VITALS: BP 125/104
--- NOTE | 2018-01-18 09:26 | Emergency Room Report ---
History of Present Illness General Chief Complaint: Chest Pain Source: Patient Present Illness HPI Patient is a 52-year-old male who presented after having chest pain for the past 2 hours. Pain is described as a tight sensation. Patient was noted to have prior history of polymyositis. He takes prednisone regularly. Pain is described as a pressure-like sensation with radiation to the left arm. The patient states he has had a previous cardiac catheterization approximately 20 years ago. 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 He reports having increased chills as well as intermittently productive cough. He reportedly had been sick for several days Allergies: Coded Allergies: No Known Allergies (Unverified , 12/14/16) Patient History Past Medical History: see triage record Reviewed Nursing Documentation: PMH: Agreed, PSxH: Agreed Nursing Documentation-PM Past Medical History: No History, Except For Hx Cardiac Problems: Yes Hx Gastrointestinal Problems: Yes - hernia surgery 2013 Hx Neurological Problems: Yes - polymyelocytis Review of Systems All Other Systems: negative except mentioned in HPI Physical Exam Vital Signs Date Time Temp Pulse Resp B/P (MAP) Pulse Ox O2 Delivery O2 Flow Rate FiO2 01/18/18 09:09 85 20 135/71 100 Room Air Sp02 EP Interpretation: reviewed, normal General Appearance: normal inspection, well appearing, no apparent distress, alert, GCS 15 Head: atraumatic ENT: normal ENT inspection, hearing grossly normal, normal voice Neck: normal inspection, full range of motion, supple, no bony tend Respiratory: normal inspection, lungs clear, normal breath sounds, no respiratory distress, no retraction, no wheezing Cardiovascular #1: regular rate, rhythm, no edema Gastrointestinal: normal inspection, normal bowel sounds, non tender, soft, no guarding, no hernia Genitourinary: no CVA tenderness Musculoskeletal: normal inspection, back normal, normal range of motion Neurologic: normal inspection, alert, responsive, speech normal Psychiatric: normal inspection, judgement/insight normal, mood/affect normal Skin: normal inspection, normal color, no rash Medical Decision Making Diagnostic Impression: Primary Impression: Influenza B Additional Impressions: Chest pain Abnormal EKG Polymyositis ER Course This patient presented for chest pain. Differential diagnosis included but was not limited to acute coronary syndrome, pulmonary embolism, pneumonia, aortic dissection, shingles, pneumothorax, aortic dissection, esophageal rupture, pericarditis. Because of complexity of patient's case laboratory testing and imaging studies were ordered. I EKG interpreted by me showed normal sinus rhythm with a rate of 72 with nonspecific lateral T-wave changes. The patient given aspirin. Patient was given Tamiflu. Dr[facility]. A chest x-ray one view interpreted by me showed normal excise without evident infiltrate Labs Test 01/18/18 09:20 01/18/18 09:40 White Blood Count 5.4 K/UL (4.8-10.8) Red Blood Count 4.55 M/UL (4.70-6.10) Hemoglobin 14.4 G/DL (14.2-18.0) Hematocrit 42.6 % (42.0-52.0) Mean Corpuscular Volume 93 FL (80-99) Mean Corpuscular Hemoglobin 31.6 PG (27.0-31.0) Mean Corpuscular Hemoglobin Concent 33.8 G/DL (32.0-36.0) Red Cell Distribution Width 13.4 % (11.6-14.8) Platelet Count 206 K/UL (150-450) Mean Platelet Volume 8.9 FL (6.5-10.1) Neutrophils (%) (Auto) 59.7 % (45.0-75.0) Lymphocytes (%) (Auto) 29.8 % (20.0-45.0) Monocytes (%) (Auto) 8.6 % (1.0-10.0) Eosinophils (%) (Auto) 0.1 % (0.0-3.0) Basophils (%) (Auto) 1.7 % (0.0-2.0) Urine Color Pale yellow Urine Appearance Clear Urine pH 5 (4.5-8.0) Urine Specific [place] 1.010 (1.005-1.035) Urine Protein Negative (NEGATIVE) Urine Glucose (UA) Negative (NEGATIVE) Urine Ketones 3+ (NEGATIVE) Urine Occult Blood Negative (NEGATIVE) Urine Nitrite Negative (NEGATIVE) Urine Bilirubin Negative (NEGATIVE) Urine Urobilinogen Normal MG/DL (0.0-1.0) Urine Leukocyte Esterase Negative (NEGATIVE) Urine RBC 0-2 /HPF (0 - 0) Urine WBC 0-2 /HPF (0 - 0) Urine Squamous Epithelial Cells Occasional /LPF Urine Bacteria Occasional /HPF (NONE) Urine Mucus Occasional /LPF EKG Diagnostic Results Rate: normal Rhythm: NSR ST Segments: no acute changes Rhythm Strip Diag. Results EP Interpretation: yes Rhythm: NSR, no PVC's, no ectopy Last Vital Signs Date Time Temp Pulse Resp B/P (MAP) Pulse Ox O2 Delivery O2 Flow Rate FiO2 01/18/18 09:09 85 20 135/71 100 Room Air Status: unchanged Disposition: XFER SHT-TRM HOSP Condition: Stable Scripts Oseltamivir Phosphate (Tamiflu) 75 Mg Capsule 75 MG ORAL TWICE A DAY, #9 CAP Prov: Kali Sewell 01/18/18 Referrals: [facility],REFERR[facility] (PCP) Kali Sewell Jan 18, 2018 09:26
[2018-01-18] MEDS ORDERED: Aspirin Baby 81mg ORAL ONE (09:30)
[2018-01-18 09:52] LABS: APPEARANCE,URINE CLEAR; BILIRUBIN, URINE NEGATIVE (NEGATIVE); COLOR,URINE PALE YELLOW; GLUCOSE, URINE (UA) NEGATIVE (NEGATIVE); KETONES,URINE 3+ (NEGATIVE); LEUKOCYTE ESTERASE ,URINE NEGATIVE (NEGATIVE); NITRITE,URINE NEGATIVE (NEGATIVE); PH,URINE 5 (4.5-8.0); PROTEIN,URINE NEGATIVE (NEGATIVE); UROBILINOGEN,URINE NORMAL MG/DL (0.0-1.0)
[2018-01-18 09:54] LABS: BASOPHILS % (AUTO) 1.7 % (0.0-2.0); EOSINOPHILS % (AUTO) 0.1 % (0.0-3.0); HEMATOCRIT 42.6 % (42.0-52.0); HEMOGLOBIN 14.4 G/DL (14.2-18.0); LYMPHOCYTES % (AUTO) 29.8 % (20.0-45.0); MEAN CORPUSCULAR VOLUME 93 FL (80-99); MONOCYTES % (AUTO) 8.6 % (1.0-10.0); NEUTROPHILS % (AUTO) 59.7 % (45.0-75.0); PLATELET COUNT 206 K/UL (150-450); RED BLOOD COUNT 4.55 M/UL (4.70-6.10); RED CELL DISTRIBUTION WIDTH 13.4 % (11.6-14.8); WHITE BLOOD COUNT 5.4 K/UL (4.8-10.8)
[2018-01-18] MEDS ORDERED: Oseltamivir 75mg cap ORAL SCH (10:30)
[2018-01-18] MEDS ORDERED: TAMIFLU75 MG ORAL (10:35)
[2018-01-18 10:37] VITALS: BP 128/70
[2018-01-18 10:48] LABS: ANION GAP 8 mmol/L (5-15); BLOOD UREA NITROGEN 10 mg/dL (7-18); CALCIUM 9.4 MG/DL (8.5-10.1); CARBON DIOXIDE 26 MMOL/L (21-32); CHLORIDE 101 MMOL/L (98-107); CREATININE 1.1 MG/DL (0.55-1.30); POTASSIUM 3.7 MMOL/L (3.5-5.1); SODIUM 135 MMOL/L (136-145)
[2018-01-18 10:50] LABS: ALANINE AMINOTRANSFERASE 27 U/L (12-78); ALKALINE PHOSPHATASE 72 U/L (46-116); ASPARTATE AMINO TRANSFERASE 33 U/L (15-37); BILIRUBIN,TOTAL 0.5 MG/DL (0.2-1.0)
[2018-01-18 11:22] VITALS: BP 148/68
[2018-01-18] MEDS ORDERED: Acetaminophen 500mg (ES) tab ORAL ONE (11:30)
[2018-01-18 13:23] VITALS: BP 116/71
--- NOTE | 2018-01-18 14:44 | Diagnostic Imaging Report ---
Indication: Cough Technique: XRAY Chest 1v Comparison: 08/18/2016 Findings: Heart size and mediastinal contours stable. No focal airspace consolidation, pleural effusion or pneumothorax. No evidence to suggest pulmonary edema. No acute osseous abnormality. Impression: No radiographic evidence of acute cardiopulmonary disease. Specifically, no focal airspace consolidation as questioned clinically.
[2018-01-18 15:01] VITALS: BP 132/80
[2018-01-18 15:53] VITALS: BP 132/80
== END 2018-01-18 16:24 | disposition short-term general hospital (02) ==
LOC: EMR 09:10 → CANBEDREQ 10:19 → EDBEDREQ 12:04 → EMR 16:24
DX: R07.89 Other chest pain (principal); J10.1 Influenza due to other identified influenza virus with other respiratory manifestations; R94.31 Abnormal electrocardiogram [ECG] [EKG]; M33.20 Polymyositis, organ involvement unspecified
CPT/HCPCS: 36415; 71045; 80053; 81001; 83605; 84484; 85025; 86710; 87040; 93005; 94640; 96360; 99284; J7620

== ENCOUNTER 2020-10-31 06:55 | Emergency (ER) | payer BC ==
[~2020-10-31] VITALS: Ht 170.2 cm; Wt 90.7 kg
[~2020-10-31 06:55] MED LIST changes: +TAMIFLU75 MG ORAL
[2020-10-31 07:07] VITALS: BP 146/85
--- NOTE | 2020-10-31 07:17 | NUR ---
ED Nurse Note: patient walked in due to intermittent abd pain pain x 1 month. Pt relates that pain is more intense after eating a meal and he feels bloated. Pt also reports on and off constipation x 1 month. Pt is AAOx4, ambulatory with non labored breathing. Calm and cooperative.
[2020-10-31] MEDS ORDERED: Omnipaque-300 100ml vial INJ PRN (07:30)
[2020-10-31] MEDS: Dicyclomine HCl 10mg/5ml oral soln ORAL ONE (07:44)
[2020-10-31] MEDS: Mylanta II UD 30ml ORAL ONE (07:45)
[2020-10-31] MEDS: Lidocaine 2% Visc 15ml soln ORAL ONE (07:45)
--- NOTE | 2020-10-31 07:52 | NUR ---
ED Nurse Note: Collected blood and urine thne sent.
[2020-10-31 07:57] LABS: BILIRUBIN, URINE NEGATIVE (NEGATIVE); GLUCOSE, URINE (UA) NEGATIVE (NEGATIVE); KETONES,URINE 3+ (NEGATIVE); LEUKOCYTE ESTERASE ,URINE NEGATIVE (NEGATIVE); NITRITE,URINE NEGATIVE (NEGATIVE); PH,URINE 5 (4.5-8.0); PROTEIN,URINE 2+ (NEGATIVE); UROBILINOGEN,URINE 1 MG/DL (0.0-1.0)
[2020-10-31 08:02] LABS: HEMATOCRIT 38.7 % (42.0-52.0); HEMOGLOBIN 13.9 G/DL (14.2-18.0); MEAN CORPUSCULAR VOLUME 92 FL (80-99); PLATELET COUNT 182 K/UL (150-450); RED BLOOD COUNT 4.23 M/UL (4.70-6.10); RED CELL DISTRIBUTION WIDTH 15.3 % (11.6-14.8); WHITE BLOOD COUNT 4.3 K/UL (4.8-10.8)
[2020-10-31 08:06] LABS: ANION GAP 8 mmol/L (5-15); BLOOD UREA NITROGEN 14 mg/dL (7-18); CALCIUM 8.7 MG/DL (8.5-10.1); CARBON DIOXIDE 27 MMOL/L (21-32); CHLORIDE 107 MMOL/L (98-107); POTASSIUM 4.3 MMOL/L (3.5-5.1); SODIUM 142 MMOL/L (136-145)
[2020-10-31 08:08] LABS: EOSINOPHILS % (AUTO) 7.8 % (0.0-3.0); LYMPHOCYTES % (AUTO) 62.1 % (20.0-45.0); MONOCYTES % (AUTO) 8.4 % (1.0-10.0); NEUTROPHILS % (AUTO) 28.3 % (45.0-75.0)
[2020-10-31 08:09] LABS: APPEARANCE,URINE SLIGHTLY CLOUDY; BASOPHILS % (AUTO) 1.4 % (0.0-2.0); COLOR,URINE YELLOW
[2020-10-31 08:10] LABS: ALANINE AMINOTRANSFERASE 41 U/L (12-78); ALBUMIN 3.9 G/DL (3.4-5.0); ALBUMIN/GLOBULIN RATIO 1.1 (1.0-2.7); ALKALINE PHOSPHATASE 61 U/L (46-116); ASPARTATE AMINO TRANSFERASE 37 U/L (15-37); BILIRUBIN,TOTAL 0.7 MG/DL (0.2-1.0)
--- NOTE | 2020-10-31 08:45 | NUR ---
ED Nurse Note: Pt returned from CT on stable condition
--- NOTE | 2020-10-31 09:21 | Diagnostic Imaging Report ---
Clinical Indication: Abdominal pain Technique: No oral contrast utilized, per emergency room physician request IV administration nonionic contrast. Venous phase spiral acquisition obtained through the abdomen and pelvis. Multiplanar reconstructions were generated. Total dose length product 504 mGycm. CTDIvol(s) 9 mGy. Dose reduction achieved using automated exposure control Comparison: 12/29/2016 Findings: Lack of enteric contrast limits assessment of the GI tract. The appendix is normal. No evidence of diverticulosis or diverticulitis. No small bowel distention. No free or loculated intraperitoneal gas or fluid is evident. Distal esophagus, stomach, duodenum are unremarkable. Previous study demonstrated small bowel loops to be diffusely fluid-filled. This is not evident currently. The liver, gallbladder, bile ducts, pancreas, spleen, adrenals are unremarkable. Previously demonstrated hepatic hypoattenuation is no longer evident. The left kidney demonstrates multiple cysts, largest measuring 6 cm long axis dimension, somewhat increased in size from the prior study. Upper pole cyst also appears enlarged as compared to the prior exam.. The right kidney demonstrates subcentimeter low attenuation lesions which are too small to characterize. No pelvic mass or adenopathy. No retroperitoneal or mesenteric mass or adenopathy. The included lung bases demonstrate dependent atelectatic changes. The bones are unremarkable. Impression: Limited assessment of the GI tract, due to lack of enteric contrast administration No definite acute abnormality Enlarging but benign appearing left renal cysts, since prior study 12/29/2016 probable small subcentimeter left renal cysts Previously questioned fatty liver appears to have resolved The CT scanner at [facility] is accredited by the [employer] and the scans are performed using protocols designed to limit radiation exposure to as low as reasonably achievable to attain images of sufficient resolution adequate for diagnostic evaluation.
--- NOTE | 2020-10-31 09:30 | NUR ---
ED Nurse Note: Patient is asking for more pain medication. Dr Looney was notified.
[2020-10-31] MEDS ORDERED: COLACE100 MG ORAL (09:48)
[2020-10-31] MEDS ORDERED: FAMOTIDINE20 MG ORAL (09:48)
[2020-10-31 09:52] VITALS: BP 138/89
[2020-10-31] MEDS: Ketorolac 30mg Inj IV ONE (09:55)
--- NOTE | 2020-10-31 11:23 | Emergency Room Report ---
History of Present Illness General Chief Complaint: Abdominal Pain Source: Patient Present Illness HPI 55-year-old male presents to ED for evaluation. States that he has been having abdominal pain for several weeks now. Pain is epigastric, dull, 7 out of 10, nonradiating. Denies nausea or vomiting. States he is passing flatus. States his stools are very hard. Denies blood in stool. Denies chest pain or shortness of breath. No other aggravating relieving factors. Denies any other associated symptoms Allergies: Coded Allergies: No Known Allergies (Unverified , 10/31/20) COVID-19 Screening Contact w/high risk pt: No Experienced COVID-19 symptoms?: No COVID-19 Testing performed PLANT SCIENTIST: No Patient History Past Medical History: HTN Past Surgical History: other - hernia Pertinent Family History: none Social History: Denies: smoking, alcohol use, drug use Immunizations: UTD Reviewed Nursing Documentation: PMH: Agreed; PSxH: Agreed Nursing Documentation-PMH Past Medical History: No History, Except For Hx Cardiac Problems: Yes Hx Gastrointestinal Problems: Yes - hernia surgery 2013 Review of Systems All Other Systems: negative except mentioned in HPI Physical Exam Vital Signs Date Time Temp Pulse Resp B/P (MAP) Pulse Ox O2 Delivery O2 Flow Rate FiO2 10/31/20 07:07 98.2 51 18 146/85 97 Room Air Sp02 EP Interpretation: reviewed, normal General Appearance: no apparent distress, alert, GCS 15, non-toxic Head: normocephalic, atraumatic Eyes: bilateral eye normal inspection, bilateral eye PERRL ENT: hearing grossly normal, normal pharynx, no angioedema, normal voice Neck: full range of motion, supple/symm/no masses Respiratory: chest non-tender, lungs clear, normal breath sounds, speaking full sentences Cardiovascular #1: regular rate, rhythm, no edema Cardiovascular #2: 2+ carotid (R), 2+ carotid (L), 2+ radial (R), 2+ radial (L), 2+ dorsalis pedis (R), 2+ dorsalis pedis (L) Gastrointestinal: normal bowel sounds, soft, non-distended, no guarding, no rebound, tenderness - epigastric Rectal: deferred Genitourinary: normal inspection, no CVA tenderness Musculoskeletal: back normal, normal range of motion, gait/station normal, non-tender Neurologic: alert, motor strength/tone normal, oriented x3, sensory intact, responsive, speech normal Psychiatric: judgement/insight normal, memory normal, mood/affect normal, no suicidal/homicidal ideation Reflexes: 3+ bicep (R), 3+ bicep (L), 3+ tricep (R), 3+ tricep (L), 3+ knee (R), 3+ knee (L) Skin: no rash Lymphatic: no adenopathy Medical Decision Making Diagnostic Impression: Primary Impression: Abdominal pain Qualified Codes: R10.13 - Epigastric pain Additional Impression: Constipation Qualified Codes: K59.00 - Constipation, unspecified ER Course Hospital Course 55-year-old male presents to ED with abdominal pain Differential diagnosis includes-appendicitis, cholecystitis, small bowel obstruction, gastritis, Clinical course Patient placed on stretcher. After initial history and physical I ordered labs, IV fluids, meds and CT Labs - no leukocytosis, electrolytes ok, LFTs normal KGnormal sinus rhythm no acute ischemic changes interpreted by me CT - no acute process, significant fecal impaction oted I discussed findings with patient. Will discharge home with stool softeners. Safe for discharge for close outpatient follow-up. States he has a PMD/GI I feel this is a highly complex case requiring extensive working including EKG/Rhythm strip, Xray/CT/US, Blood/urine lab work, repeat exams while in ED, and administration of strong opiates/narcotics for pain control, admission to hospital or close patient follow up. Diagnosis - abdominal pain, constipation Stable and discharged to home with Rx pepcid, Colace. instructed on high-fiber diet. Followup with PMD. Return to ED if symptoms recur or worsen Laboratory Tests Test 10/31/20 07:40 White Blood Count 4.3 K/UL (4.8-10.8) L Red Blood Count 4.23 M/UL (4.70-6.10) L Hemoglobin 13.9 G/DL (14.2-18.0) L Hematocrit 38.7 % (42.0-52.0) L Mean Corpuscular Volume 92 FL (80-99) Mean Corpuscular Hemoglobin 32.8 PG (27.0-31.0) H Mean Corpuscular Hemoglobin Concent 35.8 G/DL (32.0-36.0) Red Cell Distribution Width 15.3 % (11.6-14.8) H Platelet Count 182 K/UL (150-450) Mean Platelet Volume 8.4 FL (6.5-10.1) Neutrophils (%) (Auto) 28.3 % (45.0-75.0) L Lymphocytes (%) (Auto) 62.1 % (20.0-45.0) H Monocytes (%) (Auto) 8.4 % (1.0-10.0) Eosinophils (%) (Auto) 7.8 % (0.0-3.0) H Basophils (%) (Auto) 1.4 % (0.0-2.0) Urine Color Yellow Urine Appearance Slightly cloudy Urine pH 5 (4.5-8.0) Urine Specific [place] 1.025 (1.005-1.035) Urine Protein 2+ (NEGATIVE) H Urine Glucose (UA) Negative (NEGATIVE) Urine Ketones 3+ (NEGATIVE) H Urine Blood 1+ (NEGATIVE) H Urine Nitrite Negative (NEGATIVE) Urine Bilirubin Negative (NEGATIVE) Urine Urobilinogen 1 MG/DL (0.0-1.0) H Urine Leukocyte Esterase Negative (NEGATIVE) Urine RBC 2-4 /HPF (0 - 0) H Urine WBC 0 /HPF (0 - 0) Urine Squamous Epithelial Cells Occasional /LPF Urine Bacteria Few /HPF (NONE) Urine Mucus Many /LPF (NONE/OCC) H Sodium Level 142 MMOL/L (136-145) Potassium Level 4.3 MMOL/L (3.5-5.1) Chloride Level 107 MMOL/L (98-107) Carbon Dioxide Level 27 MMOL/L (21-32) Anion Gap 8 mmol/L (5-15) Blood Urea Nitrogen 14 mg/dL (7-18) Creatinine 1.0 MG/DL (0.55-1.30) Estimat Glomerular Filtration Rate > 60 mL/min (>60) Glucose Level 83 MG/DL (74-106) Calcium Level 8.7 MG/DL (8.5-10.1) Total Bilirubin 0.7 MG/DL (0.2-1.0) Aspartate Amino Transf (AST/SGOT) 37 U/L (15-37) Alanine Aminotransferase (ALT/SGPT) 41 U/L (12-78) Alkaline Phosphatase 61 U/L (46-116) Total Protein 7.4 G/DL (6.4-8.2) Albumin 3.9 G/DL (3.4-5.0) Globulin 3.5 g/dL Albumin/Globulin Ratio 1.1 (1.0-2.7) Lipase 202 U/L (73-393) EKG Diagnostic Results Rate: normal Rhythm: NSR ST Segments: no acute changes ASA given to the pt in ED: No Rhythm Strip Diag. Results EP Interpretation: yes Rhythm: NSR, no PVC's, no ectopy CT/MRI/US Diagnostic Results CT/MRI/US Diagnostic Results : Imaging Test Ordered: CT A/P Impression Procedure: CT Abdomen Pelvis w/Contrast Clinical Indication: Abdominal pain Technique: No oral contrast utilized, per emergency room physician request IV administration nonionic contrast. Venous phase spiral acquisition obtained through the abdomen and pelvis. Multiplanar reconstructions were generated. Total dose length product 504 mGycm. CTDIvol(s) 9 mGy. Dose reduction achieved using automated exposure control Comparison: 12/29/2016 Findings: Lack of enteric contrast limits assessment of the GI tract. The appendix is normal. No evidence of diverticulosis or diverticulitis. No small bowel disten tion. No free or loculated intraperitoneal gas or fluid is evident. Distal esophagus, stomach, duodenum are unremarkable. Previous study demonstrated small bowel loops to be diffusely fluid-filled. This is not evident currently. The liver, gallbladder, bile ducts, pancreas, spleen, adrenals are unremarkable. Previously demonstrated hepatic hypoattenuation is no longer evident. The left kidney demonstrates multiple cysts, largest measuring 6 cm long axis dimension, somewhat increased in size from the prior study. Upper pole cyst also appears enlarged as compared to the prior exam.. The right kidney demonstrates subcentimeter low attenuation lesions which are too small to characterize. No pelvic mass or adenopathy. No retroperitoneal or mesenteric mass or adenopathy. The included lung bases demonstrate dependent atelectatic changes. The bones are unremarkable. Impression: Limited assessment of the GI tract, due to lack of enteric contrast administration No definite acute abnormality Enlarging but benign appearing left renal cysts, since prior study 12/29/2016 probable small subcentimeter left renal cysts Previously questioned fatty liver appears to have resolved The CT scanner at [facility] is accredited by the [employer] and the scans are performed using protocols designed to limit radiation exposure to as low as reasonably achievable to attain images of sufficient resolution adequate for diagnostic evaluation. Last Vital Signs Date Time Temp Pulse Resp B/P (MAP) Pulse Ox O2 Delivery O2 Flow Rate FiO2 10/31/20 09:52 98.5 58 16 138/89 100 Room Air Status: improved Disposition: HOME, SELF-CARE Condition: Stable Scripts Famotidine* (Pepcid 20mg tablet*) 20 Mg Tablet 20 MG ORAL DAILY for Gerd, #30 TAB 0 Refills Prov: Ezio Looney MD 10/31/20 Docusate Sodium* (COLACE*) 100 Mg Capsule 100 MG ORAL THREE TIMES A DAY, #30 CAP Prov: Ezio Looney MD 10/31/20 Referrals: NOT CHOSEN IPA/,REFERRING (PCP) Patient Instructions: Abdominal Pain, Adult, Constipation, Adult, [id number] Ezio Looney MD Oct 31, 2020 11:23
--- NOTE | 2020-11-01 12:59 | Cardiology Report ---
APPROVED REPORT EKG Measurement Heart [id number] CT [id number] <Conclusion> Sinus bradycardia Nonspecific T wave abnormality Abnormal ECG
== END 2020-10-31 09:52 | disposition home or self-care (01) ==
LOC: EMR 07:35
DX: K59.00 Constipation, unspecified (principal); R10.13 Epigastric pain; I10 Essential (primary) hypertension
CPT/HCPCS: 36415; 74177; 80053; 81003; 83690; 85025; 93005; 96361; 96374; 96375; 99284; J1885; J7030; Q9965; S0028

== ENCOUNTER 2021-02-02 09:26 | Emergency (ER) | payer OTHER ==
[~2021-02-02] VITALS: Ht 172.7 cm; Wt 72.6 kg
[~2021-02-02 09:26] MED LIST changes: +COLACE100 MG ORAL; +FAMOTIDINE20 MG ORAL
--- NOTE | 2021-02-02 09:34 | Emergency Room Report ---
History of Present Illness General Chief Complaint: To Be Triaged Present Illness HPI 55-year-old male with history of prostate cancer status post prostatectomy, urinary tract infection currently on ciprofloxacin, here with sudden onset lightheadedness and presyncope. Patient says that about 20 minutes prior to coming to the emergency department he was in the office and suddenly "I felt lightheaded like I was about to faint." Patient is on day 2 of a 5-day course of ciprofloxacin. Said he was also complaining of some nausea this morning. Patient also states that his left upper extremity has intermittently felt numb compared to the right upper extremity on and off for the past 10 days. At this time in the emergency department he does state that the left upper extremity feels "numb and weak" compared to the right upper extremity. Denies headache, vision changes, fevers, chills, chest pain, palpitation, shortness of breath, back pain, abdominal pain, vomiting, diarrhea. Allergies: Coded Allergies: No Known Allergies (Unverified , 10/31/20) COVID-19 Screening Contact w/high risk pt: No Experienced COVID-19 symptoms?: No Nursing Documentation-PMH Hx Cardiac Problems: Yes Hx Gastrointestinal Problems: Yes - hernia surgery 2014 Review of Systems All Other Systems: negative except mentioned in HPI Physical Exam Sp02 EP Interpretation: reviewed, normal General Appearance: alert, non-toxic, other - Diaphoretic, appears anxious Head: normocephalic, atraumatic Eyes: bilateral eye normal inspection, bilateral eye PERRL ENT: hearing grossly normal, normal pharynx, no angioedema, normal voice Neck: full range of motion, supple/symm/no masses Respiratory: chest non-tender, lungs clear, normal breath sounds, speaking full sentences Cardiovascular #1: regular rate, rhythm, no edema Cardiovascular #2: 2+ carotid (R), 2+ carotid (L), 2+ radial (R), 2+ radial (L), 2+ dorsalis pedis (R), 2+ dorsalis pedis (L) Gastrointestinal: normal bowel sounds, non tender, soft, non-distended, no guarding, no rebound Rectal: deferred Genitourinary: normal inspection, no CVA tenderness Musculoskeletal: back normal, normal range of motion, gait/station normal, non- tender Neurologic: alert, motor strength/tone normal, oriented x3, sensory intact, responsive, speech normal, other - Equal strength all extremities. Coordination intact. Subjective left upper extremity numbness compared to right upper extremity Psychiatric: judgement/insight normal, memory normal, mood/affect normal, no suicidal/homicidal ideation Lymphatic: no adenopathy Medical Decision Making Diagnostic Impression: Primary Impression: Pre-syncope ER Course EKG: NSR, intervals WNL. No ectopy. Rate 50 bpm. T wave inversions in leads III, aVF, V5 and V6 appear unchanged from previous EKG Rhythm strip: patient monitored for arrhythmias - no malignant dysrhythmias, runs of PVCs, nor pauses noted CXR: No infiltrate/effusion. Mediastinum within normal limits. No consolidations. No free air under the diaphragm. No bony abnormalities Laboratory Tests Test 02/02/21 09:33 White Blood Count 4.9 K/UL (4.8-10.8) Red Blood Count 4.53 M/UL (4.70-6.10) L Hemoglobin 14.1 G/DL (14.2-18.0) L Hematocrit 43.8 % (42.0-52.0) Mean Corpuscular Volume 97 FL (80-99) Mean Corpuscular Hemoglobin 31.2 PG (27.0-31.0) H Mean Corpuscular Hemoglobin Concent 32.3 G/DL (32.0-36.0) Red Cell Distribution Width 14.5 % (11.6-14.8) Platelet Count 217 K/UL (150-450) Mean Platelet Volume 8.9 FL (6.5-10.1) Neutrophils (%) (Auto) 73.1 % (45.0-75.0) Lymphocytes (%) (Auto) 23.7 % (20.0-45.0) Monocytes (%) (Auto) 2.2 % (1.0-10.0) Eosinophils (%) (Auto) 0.1 % (0.0-3.0) Basophils (%) (Auto) 0.9 % (0.0-2.0) Urine Color Pale yellow Urine Appearance Clear Urine pH 6 (4.5-8.0) Urine Specific [place] 1.010 (1.005-1.035) Urine Protein Negative (NEGATIVE) Urine Glucose (UA) Negative (NEGATIVE) Urine Ketones Negative (NEGATIVE) Urine Blood Negative (NEGATIVE) Urine Nitrite Negative (NEGATIVE) Urine Bilirubin Negative (NEGATIVE) Urine Urobilinogen Normal MG/DL (0.0-1.0) Urine Leukocyte Esterase Negative (NEGATIVE) Sodium Level 141 MMOL/L (136-145) Potassium Level 4.2 MMOL/L (3.5-5.1) Chloride Level 105 MMOL/L (98-107) Carbon Dioxide Level 25 MMOL/L (21-32) Anion Gap 11 mmol/L (5-15) Blood Urea Nitrogen 13 mg/dL (7-18) Creatinine 1.2 MG/DL (0.55-1.30) Estimated Glomerular Filtration Rate > 60 mL/min (>60) Glucose Level 112 MG/DL (74-106) H Lactic Acid Level 1.80 mmol/L (0.4-2.0) Calcium Level 9.6 MG/DL (8.5-10.1) Total Bilirubin 0.3 MG/DL (0.2-1.0) Aspartate Amino Transferase (AST) 28 U/L (15-37) Alanine Aminotransferase (ALT) 30 U/L (12-78) Alkaline Phosphatase 62 U/L (46-116) Troponin I 0.001 ng/mL (0.000-0.056) Total Protein 7.9 G/DL (6.4-8.2) Albumin 4.2 G/DL (3.4-5.0) Globulin 3.7 g/dL Albumin/Globulin Ratio 1.1 (1.0-2.7) Urine Opiates Screen Negative (NEGATIVE) Urine Barbiturates Screen Negative (NEGATIVE) Phencyclidine (PCP) Screen Negative (NEGATIVE) Urine Amphetamines Screen Negative (NEGATIVE) Urine Benzodiazepines Screen Negative (NEGATIVE) Urine Cocaine Screen Negative (NEGATIVE) Urine Marijuana (THC) Screen Positive (NEGATIVE) H CT head: No acute intracranial abnormality 55-year-old male here with a presyncopal episode. Patient was hemodynamically stable and neurovascular intact in the emergency department. He had an EKG performed that showed T wave inversions in leads III, aVF, V5, V6 which are unchanged from patient's previous EKG that he had approximately [address] head was negative for any acute intracranial hemorrhage, mass-effect, or cortical edema. Patient was told that an MRI was recommended for more sensitive evaluation. He did have evidence of a nonspecific hypoattenuation suggestive of chronic ischemic microvascular changes. Patient's heart rate ranged from approximately 45 to 55 bpm which by chart review is unchanged from patient's previous visits to the emergency department. Patient was given 1 L of IV normal saline and had complete resolution of his symptoms. CBC, CMP, troponin, urinalysis all largely unremarkable. Patient was offered admission for further work-up and observation but he declined and said that he wished to follow-up with his doctor. Patient was given very strict return precautions to come back to the emergency department or call 911 if he has any worsening syncope, presyncope, chest pain, palpitations, shortness of breath, nausea, vomiting. He expressed understanding and was discharged. Karl Rea M.D. Feb 02, 2021 09:34
[2021-02-02 09:36] VITALS: BP 133/62
--- NOTE | 2021-02-02 09:40 | NUR ---
pt working, suddenly felt diaphoretic, dizzy, weak. pt denies LOC, denies fainting, denies hitting head. pt A&Ox4, alert, diaphoretic on arrival. pt states pmh prostate ca. pt denies allergies. pt states L arm numbness and R sided VALLEJO over past week. pt in bed, accucheck & ekg completed, IV started, blood drawn and sent to lab. pt medicated per eMAR. pt on continuous cardiac/O2 monitor. urine sent. NIHSS completed, numb in L arm, sensation diminished. no other defecits noted. 0943: pt to CT.
[2021-02-02 09:54] LABS: APPEARANCE,URINE CLEAR; BILIRUBIN, URINE NEGATIVE (NEGATIVE); COLOR,URINE PALE YELLOW; GLUCOSE, URINE (UA) NEGATIVE (NEGATIVE); KETONES,URINE NEGATIVE (NEGATIVE); LEUKOCYTE ESTERASE ,URINE NEGATIVE (NEGATIVE); NITRITE,URINE NEGATIVE (NEGATIVE); PH,URINE 6 (4.5-8.0); PROTEIN,URINE NEGATIVE (NEGATIVE); UROBILINOGEN,URINE NORMAL MG/DL (0.0-1.0)
[2021-02-02 10:01] LABS: BASOPHILS % (AUTO) 0.9 % (0.0-2.0); EOSINOPHILS % (AUTO) 0.1 % (0.0-3.0); HEMATOCRIT 43.8 % (42.0-52.0); HEMOGLOBIN 14.1 G/DL (14.2-18.0); LYMPHOCYTES % (AUTO) 23.7 % (20.0-45.0); MEAN CORPUSCULAR VOLUME 97 FL (80-99); MONOCYTES % (AUTO) 2.2 % (1.0-10.0); NEUTROPHILS % (AUTO) 73.1 % (45.0-75.0); PLATELET COUNT 217 K/UL (150-450); RED BLOOD COUNT 4.53 M/UL (4.70-6.10); RED CELL DISTRIBUTION WIDTH 14.5 % (11.6-14.8); WHITE BLOOD COUNT 4.9 K/UL (4.8-10.8)
--- NOTE | 2021-02-02 10:02 | NUR ---
1003: pt back from CT. XRAY at bedside. pt on continuous monitor. IV fluids running.
[2021-02-02 10:05] LABS: ANION GAP 11 mmol/L (5-15); BLOOD UREA NITROGEN 13 mg/dL (7-18); CALCIUM 9.6 MG/DL (8.5-10.1); CARBON DIOXIDE 25 MMOL/L (21-32); CHLORIDE 105 MMOL/L (98-107); CREATININE 1.2 MG/DL (0.55-1.30); POTASSIUM 4.2 MMOL/L (3.5-5.1); SODIUM 141 MMOL/L (136-145)
[2021-02-02 10:10] LABS: ALANINE AMINOTRANSFERASE 30 U/L (12-78); ALBUMIN 4.2 G/DL (3.4-5.0); ALBUMIN/GLOBULIN RATIO 1.1 (1.0-2.7); ALKALINE PHOSPHATASE 62 U/L (46-116); ASPARTATE AMINO TRANSFERASE 28 U/L (15-37); BILIRUBIN,TOTAL 0.3 MG/DL (0.2-1.0)
[2021-02-02 10:27] VITALS: BP 143/51
--- NOTE | 2021-02-02 11:38 | Diagnostic Imaging Report ---
Indication: Weakness, headache Technique: Continuous helical CT scanning of the head was performed utilizing automated exposure control without intravenous contrast material. Axial and coronal reconstructions were obtained. Comparison: None CT dose: Total DLP 1098.9 mGycm; CTDI vol 53.4 mGy Findings: There is no acute intracranial hemorrhage, mass effect or cortical edema. The ventricles, cisterns and sulci are within normal limits for age. Minimal periventricular hypoattenuation is seen, a nonspecific finding. Visualized mastoid air cells and paranasal sinuses are unremarkable. No acute skull fracture IMPRESSION: No evidence of acute intracranial hemorrhage, mass effect or cortical edema. MRI recommended for more sensitive evaluation as clinically indicated. Minimal nonspecific periventricular hypoattenuation suggestive of chronic ischemic microvascular changes. The CT scanner at [facility] is accredited by the [employer] and the scans are performed using protocols designed to limit radiation exposure to as low as reasonably achievable to attain images of sufficient resolution adequate for diagnostic evaluation.
--- NOTE | 2021-02-02 11:41 | Diagnostic Imaging Report ---
Indication: Chest pain Technique: XRAY Chest 1v Comparison: 01/18/2018 Findings: Heart size and mediastinal contours within normal limits and stable compared to the prior exam. No focal airspace consolidation, pleural effusion or pneumothorax. No evidence to suggest pulmonary edema. No acute osseous abnormality. Impression: No radiographic evidence of acute cardiopulmonary disease.
[2021-02-02 11:45] VITALS: BP 131/57
== END 2021-02-02 12:10 | disposition home or self-care (01) ==
LOC: EMR 09:38
DX: R55 Syncope and collapse (principal); Z85.46 Personal history of malignant neoplasm of prostate; Z90.79 Acquired absence of other genital organ(s); N39.0 Urinary tract infection, site not specified; R11.0 Nausea
CPT/HCPCS: 36415; 70450; 71045; 80053; 80307; 81003; 83605; 84484; 85025; 93005; 96360; 99284